=== PATIENT | female | born 1955 | race Caucasian/White ===

== ENCOUNTER 2019-04-03 09:19 | Day surgery (SDC) | payer OTHER ==
[~2019-04-03] VITALS: Ht 167.6 cm; Wt 89.0 kg
[~2019-04-03 09:19] MED LIST: ACIDOPHILUS1 EAC2 PO; ALLERCLEAR10 MG PO; ALPR.5 PO; CALMAGZIN PO; CARV25 PO; ESOM20 PO; EVENING PRIMR1000 MG PO; FURO40 PO; LACTOBACILLUS ACIDOPHILUS PO; LEVFLO500 PO; LEVSOD100 PO; LEVSOD75 PO; LISI20 PO; LORA10ER PO; LOSA50 PO; MEDR5 PO; META800 PO; METF500 PO; Minocycline HC100 MG; NAPR375 PO; NIFE30ER PO; Nexium40 MG PO; OMEG1CAP30; OMEG1CAP30 PO; OSPHENA60 MG PO; OSTEO BI-FLEX1 EAC2 PO; One Daily Comp1 EACH PO; PIOG15; SERT100 PO; SUDOGEST PO; Sudogest60 MG PO; TIROSINT100 MCG PO; TRAZ50; TRAZ50 PO; VENL150ER PO; VENL75ER PO; ZOLP12.5 PO; [UNRECOGNIZED DRUG - OTHER] PO
== END 2019-04-03 11:25 | disposition home or self-care (01) ==
LOC: ORSCSDS 09:19
PROVIDERS: Internal Medicine Gastroenterology
PROC: 0DBL8ZX Excision of Transverse Colon, Via Natural or Artificial Opening Endoscopic, Diagnostic (ICD-10-PCS; principal; 2019-04-03 10:45)
PROC: 0DBN8ZX Excision of Sigmoid Colon, Via Natural or Artificial Opening Endoscopic, Diagnostic (ICD-10-PCS; principal; 2019-04-03 10:45)
DX: Z12.11 Encounter for screening for malignant neoplasm of colon (principal); Z86.010 Personal history of colon polyps; Z80.0 Family history of malignant neoplasm of digestive organs; K63.5 Polyp of colon; G47.33 Obstructive sleep apnea (adult) (pediatric); E11.9 Type 2 diabetes mellitus without complications; I10 Essential (primary) hypertension; E03.9 Hypothyroidism, unspecified; K64.4 Residual hemorrhoidal skin tags; K64.8 Other hemorrhoids; Z79.899 Other long term (current) drug therapy
CPT/HCPCS: 82947; 88305; J2704; J7120